=== PATIENT | male | born 1980 | race African-American/Black ===

== ENCOUNTER → 2016-07-20 | Outpatient (CLI) | payer MEDICARE, MEDICAID ==
--- NOTE | 2016-07-21 22:08 | XCELERA REPORT ---
[address] [address] Transthoracic Echocardiogram Report Name: MERA MENDEZ Age: 36 yrs Gender: Male : 1980 Patient Status: Outpatient Patient Location: Study Date: 07/20/2016 03:22 PM Height: 65 in Weight: 190 lb BSA: 1.9 m2 Procedure: A complete two-dimensional transthoracic echocardiogram was performed (2D, M-mode, spectral and color flow Doppler). The study was technically difficult with many images being suboptimal in quality. Reason For Study: HEART FAILURE Ordering Physician: ESTEFANI GALAN Performed By: Josey Wright Interpretation Summary The study was technically difficult with many images being suboptimal in quality. The left ventricular ejection fraction is normal. There is borderline concentric left ventricular hypertrophy. The left ventricle is grossly normal size. Doppler measurements suggest pseudonormalized left ventricular relaxation, which is associated with grade II/IV or mild to moderate diastolic dysfunction Wall motion cannot be accurately commented on, but no definite regional wall motion abnormalities noted. The right ventricle is mildly dilated. The right ventricle appears to be hypertrophied Consider additional methods to assess RVEF such as MUGA scan, CTA heart, cardiac MRI, BENOIT, etc. if clinically indicated. The right atrium is mildly dilated. The left atrial size is normal. There is a trace to mild amount of mitral regurgitation No significant mitral valve stenosis. There is no aortic valve stenosis No aortic regurgitation is present. There is a trace to mild amount of tricuspid regurgitation There is mild pulmonary hypertension by echo Right ventricular systolic pressure is estimated to be elevated at 30- 40mmHg. There is no pericardial effusion. MMode/2D Measurements \T\ Calculations RVDd: 2.9 cm LVIDd: 3.9 cm FS: 37.7 % Ao root diam: 2.6 cm IVSd: 0.86 cm LVIDs: 2.5 cm EDV(Teich): 67.6 ml LVPWd: 0.85 cm ESV(Teich): 21.3 ml Ao root area: 5.3 cm2 EF(Teich): 68.4 % LA dimension: 2.6 cm Doppler Measurements \T\ Calculations MV E max alee: MV P1/2t max alee: Ao V2 max: LV V1 max P.7 cm/sec 94.0 cm/sec 95.1 cm/sec 2.4 mmHg MV A max alee: MV P1/2t: 56.2 msec Ao max PG: LV V1 max: 58.0 cm/sec 3.6 mmHg 76.8 cm/sec MV E/A: 1.6 MVA(P1/2t): 3.9 cm2 MV dec slope: 489.6 cm/sec2 MV dec time: 0.20 sec PA V2 max: PI end-d alee: TR max alee: 133.8 cm/sec 131.7 cm/sec 260.6 cm/sec PA max PG: TR max P.2 mmHg 27.2 mmHg Left Ventricle The left ventricle is grossly normal size. There is borderline concentric left ventricular hypertrophy. The left ventricular ejection fraction is normal. Doppler measurements suggest pseudonormalized left ventricular relaxation, which is associated with grade II/IV or mild to moderate diastolic dysfunction. Wall motion cannot be accurately commented on, but no definite regional wall motion abnormalities noted. Right Ventricle The right ventricle is mildly dilated. The right ventricle appears to be hypertrophied. Consider additional methods to assess RVEF such as MUGA scan, CTA heart, cardiac MRI, BENOIT, etc. if clinically indicated. Atria The right atrium is mildly dilated. The left atrial size is normal. Interarterial septum not well visualized and not well dopplered. Cannot comment on ASD/PFO presence. Mitral Valve The mitral valve is grossly normal. No significant mitral valve stenosis. There is a trace to mild amount of mitral regurgitation. Aortic Valve The aortic valve opens well. There is no aortic valve stenosis. No aortic regurgitation is present. Tricuspid Valve The tricuspid valve is not well visualized secondary to technical limitations. There is no tricuspid stenosis. There is a trace to mild amount of tricuspid regurgitation. There is mild pulmonary hypertension by echo. Right ventricular systolic pressure is estimated to be elevated at 30-40mmHg. Pulmonic Valve The pulmonic valve is not well visualized. There is a mild amount of pulmonic regurgitation. Great Vessels The aortic root is not well visualized. The inferior vena cava was not well visualized. Effusions There is no pericardial effusion. : ESTEFANI GALAN > Isiah Fink
== END ==
LOC: SP 14:47
PROVIDERS: ATTEND Physician Assistant
DX: I50.9 Heart failure, unspecified (principal)
CPT/HCPCS: 93306

== ENCOUNTER 2016-09-03 18:46 | Emergency (ER) | payer MEDICARE, MEDICAID ==
[2016-09-03] MEDS ORDERED: ONDANSETRON 4 MG TAB.RAPDIS PO ONE (19:52)
--- NOTE | 2016-09-03 19:52 | ER Document Report ---
ED General - General Chief Complaint: Flu Symptoms Stated Complaint: FLU LIKE SYMPTOMS Time Seen by Provider: 09/03/16 19:39 Mode of Arrival: Ambulatory Information source: Patient, Parent Notes: 36-year-old male history of Down syndrome presents with mother with concerns of diarrhea vomiting that started yesterday. Mother notes chills, denies taking her temperature. Patient no longer is having any diarrhea, mother's only concern is nausea. Patient has not had any abdominal pain TRAVEL OUTSIDE OF THE [place] IN LAST 30 DAYS: No - HPI Onset: Yesterday Onset/Duration: Sudden Quality of pain: No pain Severity: None Pain Level: Denies Associated symptoms: Diarrhea, Nausea, Vomiting Exacerbated by: Denies Relieved by: Denies Similar symptoms previously: No Recently seen / treated by doctor: No - Related Data Allergies/Adverse Reactions: No Known Allergies Allergy (Verified 09/03/16 18:52) Past Medical History - Social History Smoking Status: Never Smoker Cigarette use (# per day): No Chew tobacco use (# tins/day): No Smoking Education Provided: No Family History: DM, Malignancy Patient has suicidal ideation: No Patient has homicidal ideation: No - Past Medical History Cardiac Medical History: Reports: Hx Hypercholesterolemia Renal/ Medical History: Denies: Hx Peritoneal Dialysis - Immunizations Hx Diphtheria, Pertussis, Tetanus Vaccination: Yes Review of Systems - Review of Systems Notes: PHYSICAL EXAMINATION: GENERAL: Well-appearing, well-nourished and in no acute distress. HEAD: Down syndrome appearance EYES: Pupils equal round and reactive to light, extraocular movements intact, sclera anicteric, conjunctiva are normal. ENT: Nares patent, oropharynx clear without exudates. Moist mucous membranes. NECK: Normal range of motion, supple without lymphadenopathy LUNGS: Breath sounds clear to auscultation bilaterally and equal. No wheezes rales or rhonchi. HEART: Regular rate and rhythm without murmurs ABDOMEN: Soft, nontender, nondistended abdomen. No guarding, no rebound. No masses appreciated. Musculoskeletal: Normal range of motion, no pitting or edema. No cyanosis. NEUROLOGICAL: Cranial nerves grossly intact. Baseline speech, normal gait. Normal sensory, motor exams PSYCH: Normal mood, normal affect. SKIN: Warm, Dry, normal turgor, no rashes or lesions noted. Course - Re-evaluation Re-evalutation: 09/03/16 20:00 Physical examination noted no significant abnormality, patient was initially tachycardic, he was given nausea control. Otherwise he looks well. I did offer mother IV lab work and IV medication and evaluation but she wishes for oral medication and to be discharged. I believe this is stable and appropriate After performing a Medical Screening Examination, I estimate there is LOW risk for ACUTE APPENDICITIS, BOWEL OBSTRUCTION, ACUTE CHOLECYSTITIS, PERFORATED DIVERTICULITIS, INCARCERATED HERNIA, PANCREATITIS, or PERFORATED ULCER, thus I consider the discharge disposition reasonable. Also, there is no evidence or peritonitis, sepsis, or toxicity. I have reevaluated this patient multiple times and no significant life threatening changes are noted. The patient mother and I have discussed the diagnosis and risks, and we agree with discharging home with close follow-up with the understanding that symptoms and presentations can change. We also discussed returning to the Emergency Department immediately if new or worsening symptoms occur. We have discussed the symptoms which are most concerning (e.g., bloody stool, fever, changing or worsening pain, intractable vomiting - standard verbal up date) that necessitate immediate return. Discharge - Discharge Clinical Impression: Nausea vomiting and diarrhea Condition: Stable Disposition: HOME, SELF-CARE Instructions: Vomiting ([facility]), Diarrhea, Nonspecific ([facility]) Additional Instructions: Follow up with your physician tomorrow for further care or return to the ED IMMEDIATELY if symptoms worsen or new concerns occur. If you cannot afford to follow up with your primary care physician a list of low cost clinics have been provided at the end of your discharge papers as well.
[2016-09-03] MEDS ORDERED: ONDANSETRON ODT 4 MG TAB (6 TAB/DSPK) PO SCH (20:00)
[2016-09-03 20:38] VITALS: BP 109/63
[2016-09-03] MEDS ORDERED: ACETAMINOPHEN 325 MG TABLET PO ONE (20:39)
== END 2016-09-03 20:47 | disposition home or self-care (01) ==
LOC: ER 18:46
DX: R11.2 Nausea with vomiting, unspecified (principal); R19.7 Diarrhea, unspecified; Q90.9 Down syndrome, unspecified
CPT/HCPCS: 99283; A9270